=== PATIENT | female | born 1990 | race Caucasian/White ===

== ENCOUNTER 2018-03-31 11:42 | Emergency (ER) | payer MEDICAID ==
[2018-03-31 12:06] VITALS: BP 122/82
--- NOTE | 2018-03-31 13:02 | Emergency Department Report ---
ED Abdominal Pain HPI - General Chief Complaint: Fall Stated Complaint: PREG/FALL Time Seen by Provider: 03/31/18 12:59 Source: patient, family Mode of arrival: Ambulatory Limitations: No Limitations - History of Present Illness Initial Comments: Patient complain of back and abdominal pain. She says she tripped and fell this morning. She reports that she is 4 months . Denies any vaginal bleeding or discharge. Pain is located to her lower abdomen 4-10 and feels crampy. Patient was to [facility] [employer] and she says she's had ultrasound in the past and no problem with her . Denies any nausea or vomiting. Denies any head injury. Denies any numbness certainly into extremities. Denies any pain to her spine pain in her back is located on both sides lower back. She denies any urinary burning, frequency or urgency. She said the baby is not moving. MD Complaint: abdominal pain (after falling) -: This morning Location: suprapubic Radiation: none Migration to: no migration Severity scale (0 -10): 4 Quality: cramping Consistency: constant Improves With: nothing Worsens With: nothing Context: recent injury (patient says she fell out of the room) Associated Symptoms: other (lower back pain). denies: nausea, vomiting, diarrhea, fever, chills, constipation, dysuria, hematemesis, hematochezia, melena, hematuria, anorexia, syncope Treatments Prior to Arrival: other (none) - Related Data LMP (females 10-50): (patient reports 4 months ) Home Medications Medication Instructions Recorded Confirmed Last Taken Pnv,Calcium 72/Iron/Folic Acid 1 tab PO DAILY 12/30/15 12/30/15 12/30/15 10:00 [Preplus Ca-Fe 27 mg-FA 1 mg Tb] glyBURIDE [Glyburide] 2.5 mg PO BID 12/30/15 12/30/15 12/30/15 10:00 Previous Rx's Medication Instructions Recorded Last Taken Type metFORMIN XR [Glucophage XR] 500 mg PO BID #60 tablet 05/03/15 12/30/15 10:00 Rx Ferrous Sulfate [Feosol 325 MG tab] 325 mg PO BID #60 tablet 01/03/16 Unknown Rx Ibuprofen [Motrin 800 MG tab] 800 mg PO Q8H PRN #30 tablet 01/03/16 Unknown Rx Vit-Fe Fumar-FA [ 1 tab PO QDAY #30 tablet 01/03/16 Unknown Rx Vitamin] oxyCODONE /ACETAMINOPHEN [Percocet 2 tab PO Q4H PRN #40 tablet 01/03/16 Unknown Rx 5/325 mg] Cephalexin [Keflex] 500 mg PO Q12HR 5 Days #10 cap 03/31/18 Unknown Rx Allergies Allergy/AdvReac Type Severity Reaction Status Date / Time No Known Allergies Allergy Verified 03/31/18 12:02 ED Review of Systems ROS: Stated complaint: PREG/FALL Other details as noted in HPI Comment: All other systems reviewed and negative Constitutional: no symptoms reported Eyes: denies: eye pain, vision change Respiratory: denies: cough, orthopnea, shortness of breath, SOB with exertion, SOB at rest, wheezing Cardiovascular: denies: chest pain, palpitations, dyspnea on exertion, orthopnea , edema, syncope, paroxysmal nocturnal dyspnea Endocrine: no symptoms reported Gastrointestinal: abdominal pain. denies: nausea, diarrhea Genitourinary: other (denies vaginal bleeding.). denies: urgency, dysuria, frequency, hematuria, discharge Musculoskeletal: back pain. denies: joint swelling, arthralgia, myalgia Skin: denies: rash, lesions Neurological: denies: headache, weakness, abnormal gait, vertigo ED Past Medical Hx - Past Medical History Previous Medical History?: Yes Hx Hypertension: Yes (with mon Normodyne) Hx Congestive Heart Failure: No Hx Diabetes: Yes Hx Deep Vein Thrombosis: No Hx Renal Disease: No Hx Sickle Cell Disease: No Hx Seizures: No Hx Asthma: No Hx COPD: No Hx HIV: No - Surgical History Past Surgical History?: No - Family History Family history: diabetes, hypertension - Social History Smoking Status: Never Smoker Substance Use Type: None Other Social History: and lives with family - Medications Home Medications: Home Medications Medication Instructions Recorded Confirmed Last Taken Type metFORMIN XR [Glucophage XR] 500 mg PO BID #60 tablet 05/03/15 12/30/15 10:00 Rx Pnv,Calcium 72/Iron/Folic Acid 1 tab PO DAILY 12/30/15 12/30/15 12/30/15 10:00 History [Preplus Ca-Fe 27 mg-FA 1 mg Tb] glyBURIDE [Glyburide] 2.5 mg PO BID 12/30/15 12/30/15 12/30/15 10:00 History Ferrous Sulfate [Feosol 325 MG tab] 325 mg PO BID #60 tablet 01/03/16 Unknown Rx Ibuprofen [Motrin 800 MG tab] 800 mg PO Q8H PRN #30 tablet 01/03/16 Unknown Rx Vit-Fe Fumar-FA [ 1 tab PO QDAY #30 tablet 01/03/16 Unknown Rx Vitamin] oxyCODONE /ACETAMINOPHEN [Percocet 2 tab PO Q4H PRN #40 tablet 01/03/16 Unknown Rx 5/325 mg] Cephalexin [Keflex] 500 mg PO Q12HR 5 Days #10 cap 03/31/18 Unknown Rx ED Physical Exam - General Limitations: No Limitations General appearance: alert, in no apparent distress - Head Head exam: Present: atraumatic, normocephalic, normal inspection, other (normal exam) - Eye Eye exam: Present: normal appearance, PERRL, EOMI. Absent: periorbital swelling , periorbital tenderness Pupils: Present: normal accommodation - ENT ENT exam: Present: normal exam, normal orophraynx, mucous membranes moist - Neck Neck exam: Present: normal inspection, full ROM, other (no C-spine tenderness). Absent: tenderness, lymphadenopathy - Respiratory Respiratory exam: Present: normal lung sounds bilaterally. Absent: respiratory distress, chest wall tenderness - Cardiovascular Cardiovascular Exam: Present: regular rate, normal rhythm, normal heart sounds. Absent: systolic murmur, diastolic murmur - GI/Abdominal GI/Abdominal exam: Present: soft, normal bowel sounds. Absent: distended, tenderness, guarding, rebound, rigid, organomegaly, mass, bruit, pulsatile mass , hernia - Extremities Exam Extremities exam: Present: normal inspection, full ROM, normal capillary refill , other (clubbing, cyanosis or edema. Positive pulses all extremities and no neurovascular compromise). Absent: tenderness, pedal edema, joint swelling, calf tenderness - Back Exam Back exam: Present: normal inspection, full ROM, other (ambulates without any difficulties). Absent: tenderness, CVA tenderness (R), CVA tenderness (L), muscle spasm, paraspinal tenderness, vertebral tenderness, rash noted - Neurological Exam Neurological exam: Present: alert, oriented X3, normal gait, reflexes normal, other (no focal neurological deficit). Absent: motor sensory deficit - Psychiatric Psychiatric exam: Present: normal affect, normal mood - Skin Skin exam: Present: warm, dry, intact, normal color. Absent: rash ED Course Vital Signs 03/31/18 12:03 Temperature 99.1 F Pulse Rate 87 Respiratory 18 Rate Blood Pressure 122/82 O2 Sat by Pulse 98 Oximetry - Reevaluation(s) Reevaluation #1: 03/31/18 13:58 Patient is stable. Abdominal exam without any tenderness. Patient said her pain is better. Still awaiting ultrasound results Reevaluation #2: 03/31/18 17:07 Patient stable. Positive urine and positive hCG. Patient with 1+ bacteria and small amount of ketone in her urine. She is asymptomatic with 1+ bacteria but since she is I will put her on Keflex for 5 days. No abdominal pain at present. No change in assessment. 03/31/18 17:53 ED Medical Decision Making - Lab Data Lab Results 03/31/18 03/31/18 Range/Units 13:12 Unknown HCG, Quant 9030 H (0-4) mIU/mL Urine Color Yellow (Yellow) Urine Turbidity Clear (Clear) Urine pH 6.0 (5.0-7.0) Ur Specific [place] 1.023 (1.003-1.030) Urine Protein <15 mg/dl (Negative) mg/dL Urine Glucose (UA) Neg (Negative) mg/dL Urine Ketones Tr (Negative) mg/dL Urine Blood Neg (Negative) Urine Nitrite Neg (Negative) Urine Bilirubin Neg (Negative) Urine Urobilinogen < 2.0 (<2.0) mg/dL Ur Leukocyte Esterase Neg (Negative) Urine WBC (Auto) 1.0 (0.0-6.0) /HPF Urine RBC (Auto) 2.0 (0.0-6.0) /HPF U Epithel Cells (Auto) 4.0 (0-13.0) /HPF Urine Bacteria (Auto) 1+ (Negative) /HPF Urine Mucus Few /HPF Urine HCG, Qual Positive A (Negative) Urine culture pending - Radiology Data Radiology results: report reviewed OB ultrasound reveals patient with single intrauterine viable . Breech position. Nonspecific low cephalic index but other calculus ratio within normal limits. heart rate is at 154 bpm. There is no evidence of placenta previa or abruption. The internal cervical os is closed. Amniotic fluid appears grossly normal. Estimated date of delivery is 2017 and patient is a 16 weeks and 2 days - Medical Decision Making ED course: Patient here status post fall and reports abdominal lower back pain. She says she accidentally tripped and fell on the broom. Physical findings with normal abdominal exam without any tenderness or open wounds. Back exam is normal. Patient is neurologically intact. Urinalysis revealed patient with trace ketone and 1+ bacteria and she is asymptomatic and having no urinary symptoms. Keflex since she is . Urine culture sent. Patient tolerating oral liquids in emergency room without any problems. OB ultrasound place patient at 16 weeks in 2 days . She has single viable intrauterine with heart rate at 154 bpm, and. This is in the breech position. Patient is unaware fist. Patient pain has subsided and she said she's been in the emergency room. She felt baby move. I discussed results of ultrasound with her and told her she will need to follow-up with her [facility] OFFICER at [facility]. I discussed the patient is to call tomorrow morning to schedule an appointment for follow-up visit. Status post fall. She receives regular care at [facility]. She is on vitamin. I discussed with her to return to emergency room if she develops any vaginal bleeding or increased abdominal pain, otherwise follow-up with her OB/ [facility]. Patient voiced understanding of dischargetreatment plan and discharged home in stable condition with her family and she is pain-free. Critical care attestation.: If time is entered above; I have spent that time in minutes in the direct care of this critically ill patient, excluding procedure time. ED Disposition Clinical Impression: Bacteria in urine, Abdominal pain during in second trimester Accidental fall Qualifiers: Encounter type: initial encounter Qualified Code(s): W19.XXXA - Unspecified fall, initial encounter Lower back pain Qualifiers: Chronicity: acute Back pain laterality: bilateral Sciatica presence: without sciatica Qualified Code(s): M54.5 - Low back pain Disposition: DC-01 TO HOME OR SELFCARE Is pt being admited?: No Does the pt Need Aspirin: No Condition: Stable Instructions: Back Pain (ED), Abdominal Pain in (ED), Fall Prevention (ED) Additional Instructions: You have a small amount of bacteria and a urine and since you have diabetes and you're , I will treat you with Keflex for 5 days. Please call [facility] and schedule an appointment for PERSONNEL OFFICER visit for tomorrow. If you develop a turn and abdominal pain, vaginal bleed, please return to emergency room VALERIE. Take Tylenol [id number] per dosing chart guidelines If you have in pain. Prescriptions: Cephalexin [Keflex] 500 mg PO Q12HR 5 Days #10 cap Referrals: YOSHI GOODE [Other] - 03/31/18 [facility] [Provider Group] - 03/31/18 Forms: Work/School Release Form(ED) Print Language: MICRONESIAN
[2018-03-31 16:33] LABS: Bacteria,Urine 1+ /HPF (Negative); Bilirubin,Urine NEG (Negative); Blood,Urine NEG (Negative); Color,Urine Yellow (Yellow); Mucus,Urine FEW /HPF; Protein,Urine <15 mg/dL mg/dL (Negative); Urobilinogen,Urine < 2.0 mg/dL (<2.0)
[2018-03-31 16:34] LABS: HCG Qualitative,Urine Positive (Negative)
--- NOTE | 2018-03-31 17:17 | Ultrasound Report ---
FINAL REPORT EXAM: US OB > = 14 WEEKS FETUS HISTORY: fall with abdominal and back pain/17 weeks preg TECHNIQUE: Ultrasound evaluation of the gravid uterus PRIORS: None. FINDINGS: There is a single viable intrauterine with documented cardiac activity. Multiple ultrasound measurements are made to determine a composite gestational age. Technologist reports noting body limb movements during real-time exam. Nonspecific low cephalic index at 70.6, lower limit 74. Other ratios are within normal limits. There is no evidence of placenta previa or abruption. The maternal cervix is closed. The quantity of visualized amniotic fluid appears grossly normal. No sonographic abnormality in the visualized portion of the anatomy. Heart rate: 154 beats per minute position: Breech Placental position: Anterior, grade 0 Maternal cervix length: 4.5cm Estimated weight: 167 g Growth percentile by ultrasound: 72 Ultrasound estimated gestational age: 16 week 6 days Ultrasound estimated delivery date: 09/09/2018 LMP estimated gestational age: 16 weeks 2 days LMP estimated delivery date: 09/13/2018 IMPRESSION: Single viable intrauterine with the above parameters Breech position Nonspecific low cephalic index but other calculable ratios within normal limits
== END 2018-03-31 18:18 | disposition home or self-care (01) ==
LOC: ED 11:42
DX: O26.892 Other specified pregnancy related conditions, second trimester (principal); R10.9 Unspecified abdominal pain; M54.5 Low back pain; R82.71 Bacteriuria; I10 Essential (primary) hypertension; E11.9 Type 2 diabetes mellitus without complications; Z3A.16 16 weeks gestation of pregnancy
CPT/HCPCS: 36415; 76805; 81001; 81025; 84702; 87086; 99284

== ENCOUNTER 2018-06-15 10:36 | Outpatient (CLI) | payer MEDICAID ==
[2018-06-15 11:01] VITALS: BP 105/67
[2018-06-15] MEDS ORDERED: LACTATED RINGERS 500 ML IV ONE (11:10)
[2018-06-15 11:33] LABS: Bilirubin,Urine NEG (Negative); Blood,Urine NEG (Negative); Color,Urine Yellow (Yellow); Mucus,Urine FEW /HPF; Protein,Urine <15 mg/dL mg/dL (Negative); Urobilinogen,Urine < 2.0 mg/dL (<2.0)
== END 2018-06-15 12:06 | disposition home or self-care (01) ==
LOC: TRG 10:36
PROVIDERS: ATTEND Obstetrics & Gynecology
DX: O47.02 False labor before 37 completed weeks of gestation, second trimester (principal); O99.212 Obesity complicating pregnancy, second trimester; O24.112 Pre-existing type 2 diabetes mellitus, in pregnancy, second trimester; Z3A.27 27 weeks gestation of pregnancy; E11.65 Type 2 diabetes mellitus with hyperglycemia; E66.01 Morbid (severe) obesity due to excess calories
CPT/HCPCS: 59025; 81001

== ENCOUNTER 2018-08-09 06:21 | Outpatient (CLI) | payer MEDICAID ==
[2018-08-09] MEDS ORDERED: LACTATED RINGERS 1,000 ML ONE (07:19)
[2018-08-09 07:37] LABS: Hematocrit 39.6 % (30.3-42.9); Hemoglobin 13.2 gm/dl (10.1-14.3); Mean Corpuscular HGB Conc 33 % (30-34); Mean Corpuscular Hemoglobin 29 pg (28-32); Mean Corpuscular Volume 86 fl (79-97); Red Blood Count 4.63 M/mm3 (3.65-5.03); Red Cell Distribution Width 14.3 % (13.2-15.2)
[2018-08-09 07:38] LABS: Platelet Count 221 K/mm3 (140-440)
[2018-08-09 07:56] LABS: INR 0.85 (0.87-1.13)
--- NOTE | 2018-08-09 08:25 | Ultrasound Report ---
ULTRASOUND BIOPHYSICAL PROFILE: History: Vaginal bleeding Technique: Transabdominal ultrasound with Doppler interrogation. 2 - breathing movements 2 - movements 2 - posture and tone 2 - Qualitative amniotic fluid volume 8 - TOTAL SCORE OF POSSIBLE 8 Heart Rate (bpm) 145
--- NOTE | 2018-08-09 08:25 | Ultrasound Report ---
ULTRASOUND OB LIMITED History: Vaginal bleeding Technique: Transabdominal ultrasound with Doppler interrogation. Gestation: Single Position: Cephalic Amniotic Fluid: Normal VIVEK = 9.7 cm Placenta: Anterior Placental Grade: 3 Heart Rate: 145 BPM No evidence for abruption.
[2018-08-09] MEDS ORDERED: LACTATED RINGERS 1,000 ML IV SCH (09:00)
[2018-08-09] MEDS ORDERED: LACTATED RINGERS 500 ML IV ONE (09:00)
[2018-08-09] MEDS ORDERED: BRETHINE SUB-Q ONE (09:15)
[2018-08-09 09:46] LABS: Alanine Aminotransferase 10 units/L (7-56); Uric Acid 4.3 mg/dL (3.5-7.6)
[2018-08-09 09:48] VITALS: BP 104/59
[2018-08-09 10:54] LABS: Bacteria,Urine 2+ /HPF (Negative); Bilirubin,Urine NEG (Negative); Blood,Urine LG (Negative); Color,Urine Yellow (Yellow); Mucus,Urine FEW /HPF; Urobilinogen,Urine < 2.0 mg/dL (<2.0)
== END 2018-08-09 10:09 | disposition home or self-care (01) ==
LOC: TRG 06:21
PROVIDERS: ATTEND Obstetrics & Gynecology
DX: O62.8 Other abnormalities of forces of labor (principal); O24.113 Pre-existing type 2 diabetes mellitus, in pregnancy, third trimester; O99.213 Obesity complicating pregnancy, third trimester; E11.9 Type 2 diabetes mellitus without complications; Z3A.36 36 weeks gestation of pregnancy
CPT/HCPCS: 36415; 59025; 76815; 76819; 81001; 82565; 82962; 83615; 84450; 84460; 84550; 85027; 85610; 85730; 86850; 86900; 86901; 96360; 96361; 96372; J3105; J7120

== ENCOUNTER 2018-08-11 10:09 | Inpatient (IN) | payer MEDICAID ==
[2018-08-11] MEDS ORDERED: PEPCID IV SCH (10:46)
[2018-08-11] MEDS ORDERED: REGLAN IV SCH (10:46)
--- NOTE | 2018-08-11 10:48 | History and Physical Report ---
History of Present Illness Date of examination: 08/11/18 Chief complaint: contractions History of present illness: Pt is a 28-year-old female 2 para 1001 RENAN 09/03/2018 at 36 weeks and 5 days who presents with regular contractions and advanced cervical dilation of 5 cm. She denies leakage of fluid or vaginal bleeding. She has had care at [facility] since 9 weeks complicated by class C diabetes on insulin therapy ( AM: 24N/12R; PM: 14N/12R); morbid obesity, history of preeclampsia, previous section, and GBS bacteriuria. Past History Past Medical History: diabetes Past Surgical History: section [employer]AB[employer] History: abnormal PAP smear, chlamydia (remote history ) Family/Genetic History: diabetes Social history: no significant social history - Obstetrical History Expected Date of Delivery: 09/03/18 Actual Gestation: 36 Week(s) 5 Day(s) : 2 Para: 1 Hx # Term Pregnancies: 1 Number of Pregnancies: 0 Spontaneous Abortions: 0 Induced : 0 Number of Living Children: 1 Medications and Allergies Allergies Allergy/AdvReac Type Severity Reaction Status Date / Time No Known Allergies Allergy Verified 03/31/18 12:02 Home Medications Medication Instructions Recorded Confirmed Last Taken Type metFORMIN XR [Glucophage XR] 500 mg PO BID #60 tablet 05/03/15 12/30/15 10:00 Rx Pnv,Calcium 72/Iron/Folic Acid 1 tab PO DAILY 12/30/15 12/30/15 12/30/15 10:00 History [Preplus Ca-Fe 27 mg-FA 1 mg Tb] glyBURIDE [Glyburide] 2.5 mg PO BID 12/30/15 12/30/15 12/30/15 10:00 History Ferrous Sulfate [Feosol 325 MG tab] 325 mg PO BID #60 tablet 01/03/16 Unknown Rx Ibuprofen [Motrin 800 MG tab] 800 mg PO Q8H PRN #30 tablet 01/03/16 Unknown Rx Vit-Fe Fumar-FA [ 1 tab PO QDAY #30 tablet 01/03/16 Unknown Rx Vitamin] oxyCODONE /ACETAMINOPHEN [Percocet 2 tab PO Q4H PRN #40 tablet 01/03/16 Unknown Rx 5/325 mg] cephALEXin [Keflex] 500 mg PO Q12HR 5 Days #10 cap 03/31/18 Unknown Rx Active Meds: Active Medications Citric Acid/Sodium Citrate (Bicitra) 30 ml PO ONCE ONE Stop: 08/11/18 10:47 Famotidine (Pepcid) 20 mg IV ONCE ONE Stop: 08/11/18 10:47 Cefazolin Sodium (Ancef/Sterile Water 2 Gm/20 Ml) 2 gm in 20 mls @ 80 mls/hr IV PREOP NR; Protocol Lactated Ringer's (Lactated Ringers) 1,000 mls @ 2,250 mls/hr IV PREOP SUSHMA Stop: 08/12/18 11:27 Oxytocin/Sodium Chloride (Pitocin/Ns 20 Unit/1000ml Drip) 20 units in 1,000 mls @ 0 mls/hr IV TITR SUSHMA Metoclopramide HCl (Reglan) 10 mg IV ONCE ONE Stop: 08/11/18 10:47 Review of Systems All systems: negative - Vital Signs Vital signs: Vital Signs Pulse Pulse Ox 75 99 08/11/18 10:22 08/11/18 10:22 Temp Pulse Resp BP Pulse Ox 91 H 98 08/11/18 10:27 08/11/18 10:27 - Physical Exam Breasts: Positive: deferred Cardiovascular: Regular rate Lungs: Positive: Clear to auscultation Abdomen: Positive: soft (obese, gravid ) Genitourinary (Female): Positive: normal external genitalia Uterus: Positive: enlarged (gravid ) Extremities: Positive: normal - Obstetrical FHR: auscultation normal Uterine Contraction Monitor Mode: External Cervical Dilatation: 5 Uterine Contraction Pattern: Regular Uterine Tone Measurement Phase: Resting Uterine Contraction Intensity: Strong/Firm Results Result Diagrams: 08/11/18 10:50 All other labs normal. Assessment and Plan A: IUP at 36w5d labor Previous x 1 Class C Diabetes Morbid Obesity BMI 43 GBS positive P: Admit to labor and delivery. Accuchek Proceed with repeat section and other indicated procedures.
[2018-08-11] MEDS ORDERED: LACTATED RINGERS 1,000 ML ONE ×2 (10:50→12:58)
[2018-08-11] MEDS ORDERED: BICITRA PO SCH (10:51)
[2018-08-11] MEDS ORDERED: ANCEF/STERILE WATER 2 GM/20 ML 2 GM/20 ML SYRINGE IV NR (11:00)
[2018-08-11] MEDS ORDERED: PITOCin/NS 20 UNIT/1000ML DRIP 20 UNITS/1,000 ML BAG IV SCH ×2 (11:00→16:25)
[2018-08-11] MEDS: LACTATED RINGERS 1,000 ML IV SCH ×3 (11:00→16:45)
--- NOTE | 2018-08-11 11:04 | Anesthesia Consultation ---
Anesthesia Consult and Med Hx Date of service: 08/11/18 - Airway Anesthetic Teeth Evaluation: Good ROM Head & Neck: Adequate Mental/Hyoid Distance: Adequate Mallampati Class: Class II Intubation Access Assessment: Probably Good - Pre-Operative Health Status ASA Pre-Surgery Classification: ASA3 Proposed Anesthetic Plan: Epidural, Spinal - Pulmonary Hx Asthma: No COPD: No Hx Pneumonia: No - Cardiovascular System Hx Hypertension: No - Central Nervous System Hx Seizures: No Hx Psychiatric Problems: No - Endocrine Hx Renal Disease: No Hx End Stage Renal Disease: No Hx Insulin Dependent Diabetes: Yes Hx Hypothyroidism: No Hx Hyperthyroidism: No - Hematic Hx Anemia: No Hx Sickle Cell Disease: No - Other Systems Hx Alcohol Use: No Hx Obesity: Yes (BMI 43)
[2018-08-11] MEDS ORDERED: BENADRYL IV PRN (11:05)
[2018-08-11] MEDS ORDERED: PHENERGAN PR PRN (11:05)
[2018-08-11] MEDS ORDERED: PHENERGAN PO PRN (11:05)
[2018-08-11] MEDS ORDERED: ZOFRAN IV PRN (11:05)
[2018-08-11] MEDS ORDERED: NARCAN 0.4 MG/1 ML IV PRN ×2 (11:05→16:25)
[2018-08-11] MEDS ORDERED: DILAUDID IV PRN (11:05)
--- NOTE | 2018-08-11 11:05 | Anesthesia Day of Surgery ---
Anesthesia Day of Surgery - Day of Surgery Patient Examined: Yes Patient H&P Reviewed: Yes Patient is NPO: Yes
[2018-08-11] MEDS ORDERED: CELESTONE SOLUSPAN IM ONE ×2 (11:17→12:00)
[2018-08-11 11:21] LABS: Basophils # (Auto) 0.1 K/mm3 (0.0-0.1); Basophils % (Auto) 0.4 % (0.0-1.8); Eosinophils % (Auto) 0.2 % (0.0-4.3); Hematocrit 36.6 % (30.3-42.9); Hemoglobin 12.3 gm/dl (10.1-14.3); Lymphocytes # (Auto) 1.7 K/mm3 (1.2-5.4); Lymphocytes % (Auto) 12.6 % (13.4-35.0); Mean Corpuscular HGB Conc 34 % (30-34); Mean Corpuscular Hemoglobin 28 pg (28-32); Mean Corpuscular Volume 85 fl (79-97); Monocytes # (Auto) 0.6 K/mm3 (0.0-0.8); Monocytes % (Auto) 4.5 % (0.0-7.3); Platelet Count 213 K/mm3 (140-440); Red Blood Count 4.33 M/mm3 (3.65-5.03); Red Cell Distribution Width 14.3 % (13.2-15.2)
[2018-08-11] MEDS ORDERED: SODIUM CHLORIDE FLUSH SYRINGE 10 ML IV SCH (12:00)
[2018-08-11] MEDS ORDERED: WATER FOR IRRIG STERILE IR ONE (12:35)
[2018-08-11] MEDS ORDERED: NACL 0.9% IR ONE (12:35)
[2018-08-11] MEDS ORDERED: NEO SYNEPHRINE/NS Syringe(OR USE) IV ONE (12:58)
[2018-08-11] MEDS ORDERED: ASTRAMORPH PF 10MG/10ML ONE (13:36)
[2018-08-11] MEDS ORDERED: NACL 0.9% 1000 ML 1,000 ML ONE (13:41)
--- NOTE | 2018-08-11 13:41 | Procedure Note ---
OB Delivery Note - Delivery Date of Delivery: 08/11/18 Surgeon: LM CLAYTON Estimated blood loss: other (750 mL) - Section Preop diagnosis: repeat , other ( labor ) Postop diagnosis: same section procedure: section, repeat low transverse Disposition: PACU Complications: none Narrative: Please see operative report. - Infant A at 1 minute: 8 at 5 minutes: 9 Gender: Male (2950g (6lb 8oz) @ 1257 pm)
--- NOTE | 2018-08-11 13:41 | Operative Report ---
Operative Report Operative Report: Date of procedure: August 11, 2018 Preoperative diagnosis: 1) IUP at 36w5d 2) labor 3) Previous section x1 4) Class C Diabetes 5) Morbid Obesity Postoperative diagnosis: Same Procedure: Repeat low transverse section Surgeon: Velma Murillo M.D. Anesthesia: Spinal-Epidural Findings: 1) Viable male , Apgars 8 and 9, weight 2950g, (6 lb 8 oz) in cephalic presentation 2) Normal-appearing uterus ovaries and tubes Estimated blood loss: 750 mL IV fluids: 1800 mL Urine output: 100 mL, clear at the end of the procedure Drains: Gamino to gravity Medications: Additional 20 units of Pitocin added to IVF Specimens: Placenta sent to pathology Complications: None Disposition: Stable to PACU Indication for procedure: Pt is a 28 year old at 36w5d with a h/o one previous section presents in labor presents for repeat . Operation in detail: After the risks, benefits, alternatives and complications were explained to the patient she gave informed consent for the procedure. She was subsequently taken to the operating room where spinal-anesthesia anesthesia was noted to be adequate. She was subsequently placed in the dorsal supine position with leftward tilt and prepped and draped in a normal sterile fashion. heart tones were noted to be in the 150s prior to incision. A timeout was performed. A Pfannenstiel skin incision was made with the knife and carried down to the layer of the fascia with the Bovie. The fascia was incised in the midline and the fascial incision was extended bilaterally with the Bovie. Attention was then turned to the superior aspect of the incision which was grasped with two Kochers, tented up, and dissected off the rectus muscles. Attention was then turned to the inferior aspect of the incision which was grasped with two Kochers , tented up and dissected off the rectus muscles. The rectus muscles were then in the midline and incised for adequate visualization. The peritoneum was then entered bluntly. The peritoneal incision was extended with good visualization of the bladder. The peritoneal incision was then stretched. An Preet self-retaining retractor was placed for visualization. The bladder blade was placed. A transverse incision was made in the lower uterine segment with a knife and extended bilaterally with the bandage scissors. The head was delivered without difficulty followed by shoulders and body. was bulb suctioned at delivery. The cord was clamped and cut and the was handed to NICU staff in attendance. Cord blood was collected. The placenta was then delivered manually. The uterus was then cleared of all clots and debris. The hysterotomy was then reapproximated with 0 Vicryl in a running locked fashion. A second layer of the same suture was used in imbricating fashion. The hysterotomy was inspected and hemostasis was noted. The Preet self-retaining retractor was removed. The gutters were irrigated and cleared of all clots and debris. The hysterotomy was again inspected and noted to be hemostatic. Surgicel was placed over the hysterotomy. The peritoneum was reapproximated with 2-0 Vicryl in a running fashion incorporating the rectus muscles. The fascia was reapproximated with 0 Vicryl in a running fashion. The subcutaneous tissue was reapproximated with 3-0 Vicryl in a running fashion. The skin was reapproximated with 4-0 Vicryl in a subcuticular fashion. The incision was then covered with steri strips and a pressure dressing. The procedure was then ended. The patient tolerated the procedure well and was taken to the PACU in stable condition. All instrument, lap, and needle counts were correct 3.
[2018-08-11] MEDS: TORADOL IV PRN (15:00)
[2018-08-11] MEDS ORDERED: SODIUM CHLORIDE FLUSH SYRINGE 10 ML IV NR (16:25)
[2018-08-11] MEDS ORDERED: LANSINOH TP PRN (16:25)
[2018-08-11] MEDS ORDERED: TYLENOL PO PRN (16:25)
[2018-08-11] MEDS ORDERED: MYLICON PO PRN (16:25)
[2018-08-11] MEDS ORDERED: D50W (25GM) Syringe IV PRN (16:25)
[2018-08-11] MEDS ORDERED: TUCKS PAD TP PRN (16:25)
[2018-08-11] MEDS ORDERED: MILK OF MAGNESIA PO PRN (16:25)
[2018-08-11] MEDS: HumuLIN R SUB-Q SCH (18:49)
[2018-08-11] MEDS: ANCEF/NS 1 GM/50 ML 1 GM/50 ML BAG IV SCH (20:19)
[2018-08-12] MEDS: PERCOCET 5/325 PO PRN ×3 (00:56→20:56)
[2018-08-12] MEDS: LACTATED RINGERS 1,000 ML IV SCH (00:56)
[2018-08-12] MEDS: TORADOL IV PRN (00:56)
[2018-08-12] MEDS: HumuLIN R SUB-Q SCH ×4 (01:37→17:44)
[2018-08-12 01:49] LABS: Hematocrit 30.9 % (30.3-42.9); Hemoglobin 10.2 gm/dl (10.1-14.3)
[2018-08-12] MEDS ORDERED: M-M-R II VACCINE SUB-Q ONE (06:00)
[2018-08-12] MEDS ORDERED: BOOSTRIX IM ONE (06:00)
[2018-08-12] MEDS: ANCEF/NS 1 GM/50 ML 1 GM/50 ML BAG IV SCH (07:01)
[2018-08-12] MEDS: FEOSOL PO SCH (11:47)
[2018-08-12] MEDS: MOTRIN PO PRN ×2 (11:55→20:57)
--- NOTE | 2018-08-12 12:31 | Progress Note ---
Assessment and Plan A/P POD#1 s/p repeat csec doing well baby in NICCU pain well controlled on pain meds VSS continue routine PP Subjective - Subjective Date of service: 08/12/18 Principal diagnosis: s/p repeat csec Patient reports: appetite normal, voiding normally, pain well controlled, flatus , ambulating normally [place]: in NICU Objective - Vital Signs Latest vital signs: Vital Signs Temp Pulse Resp BP BP Pulse Ox 08/12/18 07:40 98.2 F 67 20 128/73 99 08/12/18 04:46 98.5 F 64 18 114/66 95 08/11/18 20:10 98.8 F 65 18 137/73 94 08/11/18 15:05 99.3 F 63 18 132/85 08/11/18 14:50 70 18 127/67 08/11/18 14:35 65 18 130/85 08/11/18 14:15 65 18 140/78 08/11/18 14:10 99.3 F 65 18 130/74 08/11/18 14:05 68 20 130/65 08/11/18 14:00 63 20 124/70 Intake and Output 08/11/18 08/12/18 08/12/18 23:59 07:59 15:59 Intake Total 650 1000 360 Output Total 400 Balance 250 1000 360 Intake: IV 50 1000 ANCEF/NS 1 GM/50 ML 1 gm 50 In 50 ml @ 100 mls/hr IV Q8H SUSHMA Rx#:[id number] Lactated Ringers 1,000 ml 1000 @ 125 mls/hr IV DIRECT SUSHMA Rx#:[id number] Oral 600 360 Output: Urine 400 Indwelling Catheter 400 Other: Total, Intake Amount 120 360 Total, Output Amount 400 - Exam Breasts: Present: normal Cardiovascular: Present: Regular rate, Normal S1 Lungs: Present: Clear to auscultation, Normal air movement Abdomen: Present: normal appearance, soft, normal bowel sounds. Absent: distention, tenderness, guarding Vulva: both: normal Uterus: Present: normal, firm Extremities: Present: normal Deep Tendon Reflex Grade: Normal +2 Incision: Present: normal, dry, intact - Labs Labs: Abnormal lab results 08/11/18 08/11/18 08/12/18 Range/Units 11:58 18:12 01:12 POC Glucose 109 H 178 H 159 H (70-105) 08/12/18 08/12/18 Range/Units 06:59 11:30 POC Glucose 138 H 172 H (70-105)
[2018-08-13] MEDS: MOTRIN PO PRN ×2 (05:43→13:37)
--- NOTE | 2018-08-13 07:28 | Progress Note ---
Assessment and Plan A/P POD#2 s/p repeat csec doing well baby in NICCU pain well controlled on pain meds VSS continue routine PP consider d/c home tomorrow Subjective - Subjective Date of service: 08/13/18 Principal diagnosis: s/p repeat csec Patient reports: appetite normal, voiding normally, pain well controlled, flatus , ambulating normally : doing well Objective - Vital Signs Latest vital signs: Vital Signs Temp Pulse Resp BP Pulse Ox 08/13/18 05:43 18 08/13/18 00:31 98.2 F 71 20 131/76 94 08/12/18 20:57 18 08/12/18 20:56 18 08/12/18 15:46 98.5 F 74 16 119/67 96 08/12/18 11:31 98.3 F 85 20 118/65 93 08/12/18 07:40 98.2 F 67 20 128/73 99 Intake and Output 08/12/18 08/12/18 08/13/18 15:59 23:59 07:59 Intake Total 360 360 360 Balance 360 360 360 Intake: Oral 360 360 360 Other: Total, Intake Amount 360 360 120 # Voids Void 1 1 - Exam Breasts: Present: normal Cardiovascular: Present: Regular rate, Normal S1 Lungs: Present: Clear to auscultation, Normal air movement Abdomen: Present: normal appearance, soft, normal bowel sounds. Absent: distention, tenderness, guarding Vulva: both: normal Uterus: Present: normal, firm, fundal height below umbilicus. Absent: bogginess , tenderness Extremities: Present: normal Deep Tendon Reflex Grade: Normal +2 Incision: Present: normal - Labs Labs: Abnormal lab results 08/12/18 08/12/18 08/13/18 Range/Units 11:30 17:33 00:28 POC Glucose 172 H 219 H 133 H (70-105) 08/13/18 Range/Units 06:53 POC Glucose 122 H (70-105)
[2018-08-13] MEDS: HumuLIN R SUB-Q SCH (12:00)
[2018-08-13] MEDS: PERCOCET 5/325 PO PRN ×2 (13:36→18:18)
[2018-08-13] MEDS: FEOSOL PO SCH (13:38)
[2018-08-14] MEDS: MOTRIN PO PRN ×5 (00:30→23:53)
--- NOTE | 2018-08-14 07:11 | Progress Note ---
Assessment and Plan A/P POD#3 s/p repeat csec doing well baby in NICCU pain well controlled on pain meds BP 140/80s will check BP closely today if normal range dicharge home f/u next week for BP check Subjective - Subjective Date of service: 08/14/18 Principal diagnosis: s/p repeat csec Patient reports: appetite normal, voiding normally, pain well controlled, flatus , ambulating normally [place]: in NICU Objective - Vital Signs Latest vital signs: Vital Signs Temp Pulse Resp BP 08/14/18 06:06 18 08/14/18 00:50 97.8 F 88 20 142/85 08/14/18 00:30 18 08/13/18 19:18 18 08/13/18 16:55 98.2 F 69 20 140/73 08/13/18 09:15 98.5 F 69 20 127/70 Intake and Output 08/13/18 08/13/18 08/14/18 15:59 23:59 07:59 Intake Total 120 120 120 Balance 120 120 120 Intake: Oral 120 120 120 Other: Total, Intake Amount 120 120 120 # Voids Void 1 1 1 - Exam Breasts: Present: normal Cardiovascular: Present: Regular rate, Normal S1 Lungs: Present: Clear to auscultation, Normal air movement Abdomen: Present: normal appearance, soft, normal bowel sounds. Absent: distention, tenderness, guarding Vulva: both: normal Uterus: Present: normal, firm, fundal height below umbilicus. Absent: bogginess , tenderness Extremities: Present: normal Deep Tendon Reflex Grade: Normal +2 Incision: Present: normal, dry, intact - Labs Labs: Abnormal lab results 08/13/18 08/13/18 08/14/18 Range/Units 12:16 18:20 01:40 POC Glucose 235 H 236 H 122 H (70-105)
[2018-08-14] MEDS: FEOSOL PO SCH (09:54)
[2018-08-14] MEDS: HumuLIN R SUB-Q SCH ×2 (12:23→17:32)
[2018-08-14] MEDS: NORMODYNE PO SCH ×2 (18:00→21:37)
[2018-08-15] MEDS: HumuLIN R SUB-Q SCH (00:09)
[2018-08-15] MEDS: MOTRIN PO PRN (05:59)
--- NOTE | 2018-08-15 08:39 | Progress Note ---
Assessment and Plan - Patient Problems (1) S/P section Current Visit: No Status: Acute Plan to address problem: patient doing well discharge home Subjective - Subjective Date of service: 08/15/18 Principal diagnosis: s/p repeat csec Interval history: Patient without complaints. Pain well controlled. Tolerating diet. Blood pressures improved Patient reports: appetite normal, voiding normally, pain well controlled : doing well Objective - Vital Signs Latest vital signs: Vital Signs Temp Pulse Resp BP BP Pulse Ox 08/15/18 04:00 98.7 F 68 16 127/77 08/14/18 23:30 98.7 F 69 16 116/73 08/14/18 21:37 82 150/93 08/14/18 18:00 73 18 133/78 08/14/18 17:27 96 F L 18 147/84 08/14/18 17:14 98.1 F 18 155/88 08/14/18 17:00 98.1 F 18 08/14/18 16:50 72 100 08/14/18 12:24 18 08/14/18 12:07 79 98 08/14/18 12:06 98.3 F 76 18 147/84 96 Intake and Output 08/14/18 08/15/18 08/15/18 22:59 06:59 14:59 Intake Total 300 Output Total 2 Balance -2 300 Intake: Intake, Free Water 300 Output: Urine 2 Other: Voiding Method Toilet # Voids 2 - Exam Uterus: Present: normal, firm - Labs Labs: Abnormal lab results 08/14/18 08/14/18 08/15/18 Range/Units 12:03 17:22 00:04 POC Glucose 124 H 130 H 136 H (70-105) 08/15/18 Range/Units 06:12 POC Glucose 108 H (70-105)
--- NOTE | 2018-08-15 08:41 | Discharge Summary ---
Providers - Providers Date of Admission: 08/11/18 10:10 Date of discharge: 08/15/18 Attending physician: LM CLAYTON 08/11/18 16:25 Consult to Recruitment Consultant [CONS] Routine Reason For Exam: Primary care physician: LM CLAYTON Hospitalization Reason for admission: labor Delivery: Procedure: section, repeat low transverse Discharge diagnosis: delivery Hospital course: Patient admitted in active labor with a prior delivery. Underwent a repeat . complicated elevated blood pressures. Condition at discharge: Good Disposition: DC-01 TO HOME OR SELFCARE - Discharge Diagnoses (1) S/P section Status: Acute Plan - Discharge Medications Prescriptions: Ibuprofen [Motrin] 600 mg PO Q8H PRN #30 tablet PRN Reason: Pain Labetalol [Normodyne TAB] 100 mg PO BID #60 tablet oxyCODONE /ACETAMINOPHEN [Percocet 5/325] 1 tab PO Q4HR #30 tab - Provider Discharge Summary Activity: no sex for 6 weeks, no heavy lifting 4 weeks, no strenuous exercise Diet: routine Instructions: routine Additional instructions: [] Smoking cessation referral if applicable(refer to patient education folder for contact #) [] Refer to [facility] Center Booklet Call your doctor immediately for: * Fever > 100.5 * Heavy vaginal bleeding ( >1 pad per hour) * Severe persistent headache * Shortness of breath * Reddened, hot, painful area to leg or breast * Drainage or odor from incision. * Keep incision clean and dry at all times and follow doctor's instructions regarding bathing/showering Schedule followup in 2 weeks - Follow up plan
[2018-08-15 09:53] VITALS: BP 128/76
[2018-08-15] MEDS: PERCOCET 5/325 PO PRN (09:55)
[2018-08-15] MEDS: FEOSOL PO SCH (09:55)
[2018-08-15] MEDS: NORMODYNE PO SCH (09:55)
== END 2018-08-15 10:40 | disposition home or self-care (01) | DRG 765 ==
LOC: TRG 10:09 → APU 10:10 → TRG 10:46 → OB 16:23
PROVIDERS: ADMIT Obstetrics & Gynecology; ATTEND Obstetrics & Gynecology
PROC: 10D00Z1 Extraction of Products of Conception, Low, Open Approach (ICD-10-PCS; principal; 2018-08-11)
PROC: 3E0234Z Introduction of Serum, Toxoid and Vaccine into Muscle, Percutaneous Approach (ICD-10-PCS; 2018-08-12)
DX: O34.219 Maternal care for unspecified type scar from previous cesarean delivery (principal); O60.14X0 Preterm labor third trimester with preterm delivery third trimester, not applicable or unspecified; Z68.41 Body mass index [BMI] 40.0-44.9, adult; Z3A.36 36 weeks gestation of pregnancy; Z37.0 Single live birth; E66.01 Morbid (severe) obesity due to excess calories; Z71.3 Dietary counseling and surveillance; Z23 Encounter for immunization; O99.214 Obesity complicating childbirth; O99.824 Streptococcus B carrier state complicating childbirth; O24.429 Gestational diabetes mellitus in childbirth, unspecified control
CPT/HCPCS: 36415; 82962; 85014; 85018; 85025; 86850; 86900; 86901; 88307; 99211; A6250; C1765; G0463; J0690; J0702; J1815; J1885; J2274; J2370; J2590; J2765; J7030; J7120

== ENCOUNTER 2019-07-28 21:56 | Emergency (ER) | payer MEDICAID ==
[2019-07-28 22:06] VITALS: BP 122/85
--- NOTE | 2019-07-28 22:30 | Event Note ---
ED Screening Note Date of service: 07/28/19 Time: 22:29 ED Screening Note: 29 y/o female comes in for back pain s/p fall. This initial assessment/diagnostic orders/clinical plan/treatment(s) is/are subject to change based on patients health status, clinical progression and re- assessment by fellow clinical providers in the ED. Further treatment and workup at subsequent clinical providers discretion. Patient/guardian urged not to elope from the ED as their condition may be serious if not clinically assessed and managed. Initial orders include:
[2019-07-28 23:29] LABS: Bilirubin,Urine NEG (Negative); Blood,Urine NEG (Negative); Color,Urine Colorless (Yellow); Mucus,Urine FEW /HPF; Protein,Urine <15 mg/dL mg/dL (Negative); Urobilinogen,Urine < 2.0 mg/dL (<2.0)
[2019-07-28 23:34] LABS: HCG Qualitative,Urine Positive (Negative)
[2019-07-28] MEDS ORDERED: TYLENOL PO ONE (23:52)
[2019-07-29 00:47] LABS: Basophils % (Auto) 0.6 % (0.0-1.8); Eosinophils # (Auto) 0.1 K/mm3 (0.0-0.4); Eosinophils % (Auto) 1.3 % (0.0-4.3); Hematocrit 44.7 % (30.3-42.9); Hemoglobin 14.7 gm/dl (10.1-14.3); Lymphocytes # (Auto) 2.5 K/mm3 (1.2-5.4); Lymphocytes % (Auto) 41.2 % (13.4-35.0); Mean Corpuscular HGB Conc 33 % (30-34); Mean Corpuscular Volume 87 fl (79-97); Monocytes # (Auto) 0.4 K/mm3 (0.0-0.8); Monocytes % (Auto) 6.1 % (0.0-7.3); Platelet Count 290 K/mm3 (140-440); Red Blood Count 5.15 M/mm3 (3.65-5.03); Red Cell Distribution Width 13.8 % (13.2-15.2)
[2019-07-29 01:02] LABS: Alanine Aminotransferase 129 units/L (7-56); Albumin 4.5 g/dL (3.9-5); BUN/Creatinine Ratio 14; Blood Urea Nitrogen 7 mg/dL (7-17); Calcium 9.7 mg/dL (8.4-10.2); Hemolysis Index 18
--- NOTE | 2019-07-29 02:44 | Ultrasound Report ---
Early obstetrical ultrasound INDICATION: , abdominal pain Transabdominal and endovaginal studies were performed. On transabdominal study uterus measures 12.1 cm in length. Endometrial stripe is prominent at 2.5 cm On endovaginal study in the endometrial canal in the fundus a 5 week sized saclike structure is seen possibly with a small yolk sac but without an obvious pole or cardiac activity. Bilateral canno t definitely confirm this is a gestational sac I suspect this is an intrauterine . No adnexal masses are seen. Ovaries show no abnormalities. No free fluid is seen. IMPRESSION: Probable intrauterine gestational sac is seen though I cannot confirm viability. I do not see strong evidence of ectopic . Clinical correlation and follow-up are suggested. Signer Name: Tyron Edwards MD Signed: 07/29/2019 2:39 AM Workstation Name: [id number]
[2019-07-29] MEDS ORDERED: NACL 0.9% 1000 ML 1,000 ML IV ONE (02:50)
--- NOTE | 2019-07-29 03:07 | Emergency Department Report ---
HPI - General Chief Complaint: Back Pain/Injury Time Seen by Provider: 07/28/19 22:27 - HPI HPI: Room 2 The patient is 29-year-old female presenting with a chief complaint of pain after fall. The patient states this evening she slipped and fell in a re staurant landing on her buttocks. Patient complains of pain to the left lower back and lower abdomen. Patient denies loss of consciousness. The patient states she suffered an abrasion to the right wrist and right ankle. Patient gives her pain score of 6/10. The patient did not know she was before coming to the emergency department Location: [See above] Duration: [See above] Quality: [See above] Severity: [See above] Timing: [See above] Context: [See above] Modifying factors: [See above] Associated signs and symptoms: [see above] ED Past Medical Hx - Past Medical History Previous Medical History?: Yes Hx Diabetes: Yes - Surgical History Past Surgical History?: Yes Additional Surgical History: 2 c sections - Family History Family history: no significant - Social History Smoking Status: Never Smoker Substance Use Type: None - Medications Home Medications: Home Medications Medication Instructions Recorded Confirmed Last Taken Type metFORMIN XR [Glucophage XR] 500 mg PO BID #60 tablet 05/03/15 08/12/18 12/30/15 10:00 Rx Pnv,Calcium 72/Iron/Folic Acid 1 tab PO DAILY 12/30/15 08/12/18 12/30/15 10:00 History [Preplus Ca-Fe 27 mg-FA 1 mg Tb] glyBURIDE [Glyburide] 2.5 mg PO BID 12/30/15 08/12/18 12/30/15 10:00 History Ferrous Sulfate [Feosol 325 MG tab] 325 mg PO BID #60 tablet 01/03/16 08/12/18 Unknown Rx Ibuprofen [Motrin 800 MG tab] 800 mg PO Q8H PRN #30 tablet 01/03/16 08/12/18 Unknown Rx Vit-Fe Fumar-FA [ 1 tab PO QDAY #30 tablet 01/03/16 08/12/18 Unknown Rx Vitamin] oxyCODONE /ACETAMINOPHEN [Percocet 2 tab PO Q4H PRN #40 tablet 01/03/16 08/12/18 Unknown Rx 5/325 mg] cephALEXin [Keflex] 500 mg PO Q12HR 5 Days #10 cap 03/31/18 08/12/18 Unknown Rx Ibuprofen [Motrin] 600 mg PO Q8H PRN #30 tablet 08/13/18 Unknown Rx oxyCODONE /ACETAMINOPHEN [Percocet 1 tab PO Q4HR #30 tab 08/13/18 Unknown Rx 5/325] Labetalol [Labetalol 100mg TAB] 100 mg PO BID #60 tablet 08/15/18 Unknown Rx Cyclobenzaprine HCl [Flexeril 5 MG 5 mg PO TID #5 tab 07/29/19 Unknown Rx TAB] ED Review of Systems ROS: Stated complaint: BACK PAIN, FLANK PAIN Other details as noted in HPI Constitutional: no symptoms reported Eyes: denies: eye pain ENT: denies: throat pain Respiratory: no symptoms reported Cardiovascular: denies: chest pain Endocrine: no symptoms reported Gastrointestinal: abdominal pain Genitourinary: denies: dysuria Musculoskeletal: back pain Neurological: denies: headache Psychiatric: denies: depression Physical Exam - Physical Exam Vital Signs: Vital Signs 07/28/19 22:00 Temperature 98.4 F Pulse Rate 103 H Respiratory 18 Rate Blood Pressure 122/85 [Right] O2 Sat by Pulse 97 Oximetry Physical Exam: GENERAL: The patient is well-developed well-nourished female lying on stretcher not appearing to be in acute distress. [] HEENT: Normocephalic. Atraumatic. Extraocular motions are intact. Patient has moist mucous membranes. NECK: Supple. Trachea midline CHEST/LUNGS: Clear to auscultation. There is no respiratory distress noted. HEART/CARDIOVASCULAR: Regular. There is no tachycardia. There is no gallop rub or murmur. ABDOMEN: Abdomen is soft, nontender. Patient has normal bowel sounds. There is no abdominal distention. SKIN: There is an abrasion to the right wrist and superficial abrasions of the right ankle. There is no edema. There is no diaphoresis. NEURO: The patient is awake, alert, and oriented. The patient is cooperative. The patient has normal speech MUSCULOSKELETAL: There is mild left paraspinous tenderness to the lumbar region. No actual step off. There is no evidence of acute injury. ED Course Vital Signs 07/28/19 22:00 Temperature 98.4 F Pulse Rate 103 H Respiratory 18 Rate Blood Pressure 122/85 [Right] O2 Sat by Pulse 97 Oximetry - Reevaluation(s) Reevaluation #1: 07/29/19 04:11 Accu-Chek 295 ED Medical Decision Making - Lab Data Result diagrams: 07/29/19 00:25 07/29/19 00:25 Laboratory Tests 07/28/19 07/29/19 07/29/19 23:09 00:25 00:25 WBC 6.0 RBC 5.15 H Hgb 14.7 H Hct 44.7 H MCV 87 MCH 29 MCHC 33 RDW 13.8 Plt Count 290 Lymph % (Auto) 41.2 H [place] % (Auto) 6.1 Eos % (Auto) 1.3 Baso % (Auto) 0.6 Lymph # 2.5 [place] # 0.4 Eos # 0.1 Baso # 0.0 Seg Neutrophils % 50.8 Seg Neutrophils # 3.0 VBG pH Sodium 134 L Potassium 4.7 Chloride 91.8 L Carbon Dioxide 26 Anion Gap 21 BUN 7 Creatinine 0.5 L Estimated GFR > 60 BUN/Creatinine Ratio 14 Glucose 670 H* POC Glucose Calcium 9.7 Total Bilirubin 0.50 AST 122 H ALT 129 H Alkaline Phosphatase 82 Total Protein 8.0 Albumin 4.5 Albumin/Globulin Ratio 1.3 HCG, Quant Urine Color Colorless Urine Turbidity Clear Urine pH 5.0 Ur Specific [place] 1.027 Urine Protein <15 mg/dl Urine Glucose (UA) >=500 Urine Ketones Neg Urine Blood Neg Urine Nitrite Neg Urine Bilirubin Neg Urine Urobilinogen < 2.0 Ur Leukocyte Esterase Neg Urine WBC (Auto) 2.0 Urine RBC (Auto) 2.0 U Epithel Cells (Auto) 1.0 Urine Mucus Few Urine HCG, Qual Positive A 07/29/19 07/29/19 07/29/19 00:25 02:54 03:39 WBC RBC Hgb Hct MCV MCH MCHC RDW Plt Count Lymph % (Auto) [place] % (Auto) Eos % (Auto) Baso % (Auto) Lymph # [place] # Eos # Baso # Seg Neutrophils % Seg Neutrophils # VBG pH 7.378 Sodium Potassium Chloride Carbon Dioxide Anion Gap BUN Creatinine Estimated GFR BUN/Creatinine Ratio Glucose POC Glucose 381 H Calcium Total Bilirubin AST ALT Alkaline Phosphatase Total Protein Albumin Albumin/Globulin Ratio HCG, Quant 1505 H Urine Color Urine Turbidity Urine pH Ur Specific [place] Urine Protein Urine Glucose (UA) Urine Ketones Urine Blood Urine Nitrite Urine Bilirubin Urine Urobilinogen Ur Leukocyte Esterase Urine WBC (Auto) Urine RBC (Auto) U Epithel Cells (Auto) Urine Mucus Urine HCG, Qual - Differential Diagnosis lumbar strain, , DKA, hyperglycemia Critical care attestation.: If time is entered above; I have spent that time in minutes in the direct care of this critically ill patient, excluding procedure time. ED Disposition Clinical Impression: Lumbar strain, , Abrasion of right wrist, Abrasion of right ankle Disposition: DC- TO HOME OR SELFCARE Is pt being admited?: No Does the pt Need Aspirin: No Condition: Stable Instructions: Muscle Strain (ED) Additional Instructions: Return to the emergency department should you develop worsening symptoms, inability to tolerate food or liquids, high fever or any other concerns Prescriptions: Cyclobenzaprine HCl [Flexeril 5 MG TAB] 5 mg PO TID #5 tab Referrals: [facility] [Provider Group] - 3-5 Days CIELO MEDINA MD [Staff Physician] - 3-5 Days Time of Disposition: 04:15
[2019-07-29] MEDS ORDERED: HumuLIN R IV ONE (03:32)
== END 2019-07-29 04:31 | disposition home or self-care (01) ==
LOC: ED 21:56
DX: S39.012A Strain of muscle, fascia and tendon of lower back, initial encounter (principal); S60.811A Abrasion of right wrist, initial encounter; S90.511A Abrasion, right ankle, initial encounter; E11.9 Type 2 diabetes mellitus without complications; Z33.1 Pregnant state, incidental; Z98.890 Other specified postprocedural states; Z79.899 Other long term (current) drug therapy; W01.0XXA Fall on same level from slipping, tripping and stumbling without subsequent striking against object, initial encounter; Y93.89 Activity, other specified; Y92.89 Other specified places as the place of occurrence of the external cause; Y99.8 Other external cause status
CPT/HCPCS: 36415; 76801; 76817; 80053; 81001; 81025; 82805; 82962; 84702; 85025; 96374; 99284; J7030; 96361; J1815

== ENCOUNTER 2021-11-22 22:00 | Emergency (ER) | payer MEDICAID ==
[2021-11-22 22:07] VITALS: BP 118/83
[2021-11-23] MEDS ORDERED: IBUPROFEN 600 MG TAB PO ONE (01:04)
[2021-11-23] MEDS ORDERED: HYDROcodone/ACETAMINOPHEN 7.5-325MG TAB PO ONE (01:04)
[2021-11-23] MEDS ORDERED: ONDANSETRON 4 MG ODT TAB PO ONE (01:04)
--- NOTE | 2021-11-23 01:52 | XRay Report ---
SACRUM/COCCYX 3 VIEWS INDICATION / CLINICAL INFORMATION: Pain - fall. COMPARISON: None available. FINDINGS: Radiographs of the sacrum and coccyx are unremarkable. There is no visible fracture or malalignment. IMPRESSION: Negative exam. Signer Name: Marii Heath MD Signed: 11/23/2021 1:47 AM Workstation Name: [id number]
--- NOTE | 2021-11-23 02:08 | Emergency Department Report ---
ED Fall HPI - General Chief Complaint: Back Pain/Injury Stated Complaint: BACK PAIN Source: patient Mode of arrival: Ambulatory - History of Present Illness Initial Comments: Patient is a 31-year-old female with a history rcz-iihfouy-qhkuxclwm diabetes who presented to the ED with complaint of acute onset persistent severe tailbone pain after she slipped and fell down at home and landed on her buttocks about 5 days ago. Patient states that the pain was initially mild but in the last 2 days the pain is worsened especially with movement or when she is lays down supine or sits down in the chair. Patient states that she has been taking mztz-cjy-vnwelsb medications with no relief. Patient denies numbness and tingling or weakness of lower extremities bilaterally, urinary or bowel incontin ence, saddle paresthesia, chest pain or shortness of breath, low back pain, neck pain, head or neck injuries. 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 denies: headache, neck pain, numbness, weakness, chest paint, shortness of breath, abdominal pain, hematuria, unable to walk, lightheaded, vertigo, confusion - Related Data Home Medications Medication Instructions Recorded Confirmed Last Taken Pnv,Calcium 72/Iron/Folic Acid 1 tab PO DAILY 12/30/15 08/12/18 12/30/15 10:00 [Preplus Ca-Fe 27 mg-FA 1 mg Tb] glyBURIDE [Glyburide] 2.5 mg PO BID 12/30/15 08/12/18 12/30/15 10:00 Previous Rx's Medication Instructions Recorded Last Taken Type metFORMIN XR [Glucophage XR] 500 mg PO BID #60 tablet 05/03/15 12/30/15 10:00 Rx Ferrous Sulfate [Feosol 325 MG tab] 325 mg PO BID #60 tablet 01/03/16 Unknown Rx Ibuprofen [Motrin 800 MG tab] 800 mg PO Q8H PRN #30 tablet 01/03/16 Unknown Rx Vit-Fe Fumar-FA [ 1 tab PO QDAY #30 tablet 01/03/16 Unknown Rx Vitamin] oxyCODONE /ACETAMINOPHEN [Percocet 2 tab PO Q4H PRN #40 tablet 01/03/16 Unknown Rx 5/325 mg] cephALEXin [Keflex] 500 mg PO Q12HR 5 Days #10 cap 03/31/18 Unknown Rx Ibuprofen [Motrin] 600 mg PO Q8H PRN #30 tablet 08/13/18 Unknown Rx oxyCODONE /ACETAMINOPHEN [Percocet 1 tab PO Q4HR #30 tab 08/13/18 Unknown Rx 5/325] labetaloL [Labetalol 100mg TAB] 100 mg PO BID #60 tablet 08/15/18 Unknown Rx Cyclobenzaprine HCl [Flexeril 5 MG 5 mg PO TID #5 tab 07/29/19 Unknown Rx TAB] Baclofen 20 mg PO Q12H PRN #24 tablet 11/23/21 Unknown Rx Ibuprofen [Motrin] 800 mg PO Q8HR PRN #30 tablet 11/23/21 Unknown Rx traMADoL [Ultram] 50 mg PO Q6HR PRN #12 tablet 11/23/21 Unknown Rx Allergies Allergy/AdvReac Type Severity Reaction Status Date / Time No Known Allergies Allergy Verified 03/31/18 12:02 ED Review of Systems ROS: Stated complaint: BACK PAIN Other details as noted in HPI Constitutional: denies: chills, fever Eyes: denies: eye pain, eye discharge, vision change ENT: denies: ear pain, throat pain Respiratory: denies: cough, shortness of breath, wheezing Cardiovascular: denies: chest pain, palpitations Endocrine: no symptoms reported Gastrointestinal: denies: abdominal pain, nausea, vomiting, diarrhea Genitourinary: denies: urgency, dysuria, discharge Musculoskeletal: back pain (Coccygeal pain). denies: joint swelling, arthralgia Skin: denies: rash, lesions Neurological: denies: headache, weakness, paresthesias Psychiatric: denies: anxiety, depression Hematological/Lymphatic: denies: easy bleeding, easy bruising ED Past Medical Hx - Past Medical History Previous Medical History?: Yes Hx Hypertension: No Hx CVA: No Hx Heart Attack/AMI: No Hx Congestive Heart Failure: No Hx Diabetes: Yes Hx Deep Vein Thrombosis: No Hx Pulmonary Embolism: No Hx GERD: No Hx Liver Disease: No Hx Renal Disease: No Hx Sickle Cell Disease: No Hx Arthritis: No Hx Headaches / Migraines: No Hx Seizures: No Hx Kidney Stones: No Hx Psychiatric Treatment: No Hx Asthma: No Hx COPD: No Hx Tuberculosis: No Hx Dementia: No Hx HIV: No - Surgical History Past Surgical History?: Yes Hx Coronary Stent: No Hx Open Heart Surgery: No Hx Pacemaker: No Hx Internal Defibrillator: No Hx Cholecystectomy: No Hx Appendectomy: No Hx Breast Surgery: No Additional Surgical History: 2 c sections - Social History Smoking Status: Never Smoker Substance Use Type: None - Medications Home Medications: Home Medications Medication Instructions Recorded Confirmed Last Taken Type metFORMIN XR [Glucophage XR] 500 mg PO BID #60 tablet 05/03/15 08/12/18 12/30/15 10:00 Rx Pnv,Calcium 72/Iron/Folic Acid 1 tab PO DAILY 12/30/15 08/12/18 12/30/15 10:00 History [Preplus Ca-Fe 27 mg-FA 1 mg Tb] glyBURIDE [Glyburide] 2.5 mg PO BID 12/30/15 08/12/18 12/30/15 10:00 History Ferrous Sulfate [Feosol 325 MG tab] 325 mg PO BID #60 tablet 01/03/16 08/12/18 Unknown Rx Ibuprofen [Motrin 800 MG tab] 800 mg PO Q8H PRN #30 tablet 01/03/16 08/12/18 Unknown Rx Vit-Fe Fumar-FA [ 1 tab PO QDAY #30 tablet 01/03/16 08/12/18 Unknown Rx Vitamin] oxyCODONE /ACETAMINOPHEN [Percocet 2 tab PO Q4H PRN #40 tablet 01/03/16 08/12/18 Unknown Rx 5/325 mg] cephALEXin [Keflex] 500 mg PO Q12HR 5 Days #10 cap 03/31/18 08/12/18 Unknown Rx Ibuprofen [Motrin] 600 mg PO Q8H PRN #30 tablet 08/13/18 Unknown Rx oxyCODONE /ACETAMINOPHEN [Percocet 1 tab PO Q4HR #30 tab 08/13/18 Unknown Rx 5/325] labetaloL [Labetalol 100mg TAB] 100 mg PO BID #60 tablet 08/15/18 Unknown Rx Cyclobenzaprine HCl [Flexeril 5 MG 5 mg PO TID #5 tab 07/29/19 Unknown Rx TAB] Baclofen 20 mg PO Q12H PRN #24 tablet 11/23/21 Unknown Rx Ibuprofen [Motrin] 800 mg PO Q8HR PRN #30 tablet 11/23/21 Unknown Rx traMADoL [Ultram] 50 mg PO Q6HR PRN #12 tablet 11/23/21 Unknown Rx ED Physical Exam - General Limitations: No Limitations General appearance: alert, in no apparent distress - Head Head exam: Present: atraumatic, normocephalic, normal inspection - Eye Eye exam: Present: normal appearance, PERRL, EOMI Pupils: Present: normal accommodation - ENT ENT exam: Present: normal exam, normal orophraynx, mucous membranes moist, TM's normal bilaterally, normal external ear exam - Neck Neck exam: Present: normal inspection, full ROM - Respiratory Respiratory exam: Present: normal lung sounds bilaterally. Absent: respiratory distress, wheezes, rales, stridor, chest wall tenderness, accessory muscle use, decreased breath sounds - Cardiovascular Cardiovascular Exam: Present: regular rate, normal rhythm, normal heart sounds. Absent: systolic murmur, diastolic murmur, rubs, gallop - GI/Abdominal GI/Abdominal exam: Present: soft, normal bowel sounds. Absent: tenderness, guarding, hyperactive bowel sounds, hypoactive bowel sounds, organomegaly - Extremities Exam Extremities exam: Present: normal inspection, full ROM, normal capillary refill - Back Exam Back exam: Present: normal inspection, full ROM, tenderness (Palpable reproducible severe coccygeal and sacral tenderness). Absent: CVA tenderness (R), CVA tenderness (L), muscle spasm, paraspinal tenderness, vertebral tenderness, rash noted - Neurological Exam Neurological exam: Present: alert, oriented X3, CN II-XII intact, normal gait, reflexes normal - Psychiatric Psychiatric exam: Present: normal affect, normal mood - Skin Skin exam: Present: warm, dry, intact, normal color. Absent: rash ED Course Vital Signs 11/22/21 11/23/21 11/23/21 22:03 01:59 02:00 Temperature 98.0 F Pulse Rate 90 Respiratory 16 18 18 Rate Blood Pressure 118/83 O2 Sat by Pulse 96 Oximetry ED Medical Decision Making - Radiology Data Radiology results: report reviewed, image reviewed [facility] [address] [place] [address] XRay Report Signed Patient: YIMI COOK MR#: [id number] : 1990 Acct:[id number] Age/Sex: 31 / F ADM Date: 11/22/21 Loc: ED Attending Dr: Ordering Physician: VIET BLEDSOE Date of Service: 11/23/21 Procedure(s): XR spine sacrum/coccyx 2+V Accession Number(s): [id number] cc: VIET BLEDSOE Fluoro Time In Minutes: SACRUM/COCCYX 3 VIEWS INDICATION / CLINICAL INFORMATION: Pain - fall. COMPARISON: None available. FINDINGS: Radiographs of the sacrum and coccyx are unremarkable. There is no visible fracture or malalignment. IMPRESSION: Negative exam. Signer Name: Marii Heath MD Signed: 11/23/2021 1:47 AM Workstation Name: [id number] Transcribed By: JR Dictated By: Marii Heath MD Electronically Authenticated By: Marii Heath MD Signed Date/Time: 11/23/21146 DD/ 6 TD/TT: - Medical Decision Making This is a 31-year-old female with a history hah-tqncdvi-vxtxhpcoq diabetes who presented to the ED with complaint of acute onset persistent severe tailbone pain after she slipped and fell down at home and landed on her buttocks about 5 days ago. Patient states that the pain was initially mild but in the last 2 days the pain is worsened especially with movement or when she is lays down supine or sits down in the chair. Patient states that she has been taking whew-vwk-gamxsqg medications with no relief. In the ED, patient is alert and oriented x3 and is not in any distress. Patient however appears to be in significant pain. Patient was treated in the ED for pain and the sacral and coccygeal x-rays showed no acute fractures or subluxations of the sacral and coccygeal bones. On reevaluation, patient's pain is moderate controlled with medication. Patient was discharged home on pain medications and advised follow- up with her primary care physician in 7 to 10 days for reevaluation or return to the ED immediately if symptoms get worse - Differential Diagnosis Coccygeal fracture; sacral fracture; muscle spasm; coccygeal contusion Critical care attestation.: If time is entered above; I have spent that time in minutes in the direct care of this critically ill patient, excluding procedure time. ED Disposition Clinical Impression: Coccygeal contusion Qualifiers: Encounter type: initial encounter Qualified Code(s): S30.0XXA - Contusion of lower back and pelvis, initial encounter Contusion of sacral region Qualifiers: Encounter type: initial encounter Qualified Code(s): S30.0XXA - Contusion of lower back and pelvis, initial encounter Disposition: HOME / SELF CARE / HOMELESS Is pt being admited?: No Does the pt Need Aspirin: No Condition: Stable Instructions: Back Injury Prevention, [id number], Tailbone Injury, Xmfu-[id number], Contusion, [id number]-Gxun Additional Instructions: The x-ray of the coccygeal and sacral region (Tail bone) showed no acute fractures or subluxations. Your injuries are likely musculoskeletal following the fall 5 days ago. Therefore take medications as needed with food, drink plenty of fluids and follow-up with your primary care physician in 7 to 10 days for reevaluation. Return to the ED immediately if symptoms get worse. Prescriptions: Baclofen 20 mg PO Q12H PRN #24 tablet PRN Reason: Muscle Spasm Ibuprofen [Motrin] 800 mg PO Q8HR PRN #30 tablet PRN Reason: Pain , Severe (7-10) traMADoL [Ultram] 50 mg PO Q6HR PRN #12 tablet PRN Reason: Pain Referrals: [facility] [Provider Group] - 7-10 days Forms: Work/School Release Form(ED) Time of Disposition: 02:06 Print Language: BENINESE
== END 2021-11-23 03:40 | disposition home or self-care (01) ==
LOC: ED 22:00
DX: S30.0XXA Contusion of lower back and pelvis, initial encounter (principal); W19.XXXA Unspecified fall, initial encounter; Y93.89 Activity, other specified; Y92.89 Other specified places as the place of occurrence of the external cause; Y99.8 Other external cause status; E11.9 Type 2 diabetes mellitus without complications
CPT/HCPCS: 72220; 99283; J3490; Q0162